=== PATIENT | male | born 1980 | race Caucasian/White ===

== ENCOUNTER 2019-10-21 00:07 | Inpatient (IN) | payer OTHER, SELFPAY ==
[2019-10-21] VITALS (7 sets, daily range): BP systolic 127–182; BP diastolic 85–120; PULSE 78–113; RESP 16–20; TEMP 36.5–37.7; O2SAT 95–97; BMI 23.6
--- NOTE | 2019-10-21 00:46 | W.ED.PSYCH ---
HPI - Psych General: Chief Complaint: Psychiatric Symptoms Stated Complaint: alcohol Time Seen by Provider: 10/21/19 00:38 Source: patient Mode of arrival: ambulatory Limitations: no limitations History of Present Illness: HPI Narrative: 39-year-old male who is here with his cousin. Patient states he has been having increasing depression and thoughts of killing himself including shoot himself with a gun. Patient states he is also been drinking heavily. He denies any previous attempts. Denies any worsening or improving factors. Associated symptoms: Reports depression and suicidal ideation Review of Systems Const: Denies: fever(s), chills, body aches or change in appetite Eyes: Denies: blurry vision or eye discomfort ENMT: Denies: throat pain or dental pain Card: Denies: chest pain Resp: Denies: dyspnea GI: Denies: abdominal pain, nausea, vomiting or diarrhea : Denies: dysuria Musc: Denies: neck pain or back pain Skin/Breast: Denies: rash Neuro: Denies: headache(s) Psych: Reports: depression and suicidal ideation Fred/Lymph: Denies: easy bruising All/Imm: Denies: urticaria PFSH ED PFSH: Social History (Updated 06/17/19 @ 11:58 by Marielena Barragan LPN) Smoking and tobacco status: current every day smoker Physical Exam Const: COMMON NORMALS: no acute distress, patient oriented x3 and healthy appearing HENMT: COMMON NORMALS: normocephalic and atraumatic HEAD & SCALP: normocephalic and atraumatic Eye: COMMON NORMALS: Equal, round and reactive pupils present and EOMs intact bilaterally PUPIL: Yes Equal, round and reactive pupils present Neck/C-Spine: COMMON NORMALS: full ROM and supple Chest: COMMONS NORMALS: normal inspection of the chest and normal palpation of entire chest wall Resp: COMMON NORMALS: normal respiratory effort, No retractions, No use of accessory muscles and clear to auscultation bilaterally AUSCULTATION: clear to auscultation bilaterally Cardio: COMMON NORMALS: regular rate, regular rhythm and No murmurs present (Cardio) RATE: regular rate RHYTHM: regular rhythm GI: COMMON NORMALS: Normal to inspection, nondistended, normoactive bowel sounds present, Soft to palpation, non-tender and no masses PALPATION: Yes Soft to palpation Extremity: COMMON NORMALS: normal to inspection and full ROM Neuro: COMMON NORMALS: patient oriented x3, moves all extremities and no focal motor deficits Psych: COMMON NORMALS: mental status grossly normal and cooperative MOOD & AFFECT: Yes anxious THOUGHT CONTENT: Yes Suicidality present Skin: COMMON NORMALS: no rashes or lesions noted and no wounds GENERAL SKIN EXAM: no rashes or lesions noted MDM - Psych MDM Narrative: Medical decision making narrative: Chay presents here with suicidal ideation with a plan to kill himself. Patient is also intoxicated as well. I spoke to Dr. Sexton and patient is stable in the ER and will admit to the psychiatric unit. Lab Data: Labs: Lab Results 10/21/19 10/21/19 10/21/19 Range/Units 00:53 00:53 01:03 WBC 11.0 H (4.0-10.0) 10^3/ uL RBC 4.52 (4.1-5.3) 10^6/u L Hgb 15.5 (11.7-16.6) g/dL Hct 44.0 (42.0-52.0) % MCV 97.3 H (80-94) fL MCH 34.3 H (28.0-34.0) pg MCHC 35.2 (30.0-36.0) g/dL RDW 11.2 L (12.1-15.1) % Plt Count 289 (130-400) 10^3/c mm MPV 9.4 (7.4-10.4) fL Neut % (Auto) 54.8 % Lymph % (Auto) 32.5 % [place] % (Auto) 6.9 % Eos % (Auto) 4.4 % Baso % (Auto) 0.9 % Neut # (Auto) 6.00 (1.8-7.7) 10^3/u L Lymph # (Auto) 3.6 (0.8-4.8) 10^3/u L [place] # (Auto) 0.8 (0.2-0.9) 10^3/u L Eos # (Auto) 0.5 (0.0-0.8) 10^3/u L Baso # (Auto) 0.1 (0.0-0.1) 10^3/u L Nucleated RBC % (a uto) 0 % Nucleated RBCs # 0.0 /100WBC Sodium 133 L (136-145) mmol/L Potassium 3.8 (3.5-5.1) mmol/L Chloride 94 L (98-107) mmol/L Carbon Dioxide 25 (22-29) mmol/L Anion Gap 17.8 (5-19) BUN 7 (6-20) mg/dL Creatinine 0.6 L (0.7-1.2) mg/dL GFR Calculation 151.6 H (90-130) mL/min Glucose 109 (65-115) mg/dL Calculated Osmolal ity 272 L (285-295) mOsm/k g Calcium 8.6 (8.5-10.5) mg/dL Total Bilirubin 0.7 (0.15-1.2) mg/dL AST 29 (0-40) U/L ALT 27 (0-41) U/L Alkaline Phosphata se 84 (40-130) IU/L Total Protein 7.8 (6.6-8.7) g/dL Albumin 5.0 (3.5-5.2) g/dL Globulin 2.8 (1.3-4.6) g/dL Salicylates < 0.3 L (3-10) mg/dL Urine Opiates Scre en Negative (Negative) ng/mL Acetaminophen < 5.0 L (10-30) ug/mL Ur Barbiturates Sc reen Negative (Negative) ng/mL Ur Phencyclidine S crn Negative (Negative) ng/mL Ur Amphetamines Sc reen Negative (Negative) ng/mL U Benzodiazepines Scrn Negative (Negative) ng/mL Urine Cocaine Scre en Negative (Negative) ng/mL U Marijuana (THC) Screen Negative (Negative) ng/mL Ethyl Alcohol 326 H* (0-10) mg/dL Discharge Plan Discharge Patient Disposition: Admitted As Inpatient Clinical Impression: Suicidal ideation Alcohol intoxication Qualifiers: Complication of substance-induced condition: uncomplicated Qualified Code(s): F10.920 - Alcohol use, unspecified with intoxication, uncomplicated Condition: Stable Coding Level of Care Code ED Train Master for Brannon Fwd Exam Comprehensive
--- NOTE | 2019-10-21 00:49 | PC.NURSE ---
PT'S COUSIN WAS WITH PT AND PT WAS CALM AND COOPERATIVE LONG HIS COUSIN WAS WITH HIM. PT WAS CHECKED ON FREQUENTLY
[2019-10-21 01:03] LABS: Basophils # 0.1 10^3/uL (0.0-0.1); Basophils % 0.9 %; Eosinophils # 0.5 10^3/uL (0.0-0.8); Eosinophils % 4.4 %; Hemoglobin 15.5 g/dL (11.7-16.6); Lymphocytes # 3.6 10^3/uL (0.8-4.8); Lymphocytes % 32.5 %; Mean Corpuscular HGB Conc 35.2 g/dL (30.0-36.0); Mean Corpuscular Hemoglobin 34.3 pg (28.0-34.0); Mean Corpuscular Volume 97.3 fL (80-94); Mean Platelet Volume 9.4 fL (7.4-10.4); Monocytes # 0.8 10^3/uL (0.2-0.9); Monocytes % 6.9 %; Neutrophils % 54.8 %; Nucleated Red Blood Cells % 0 %; Platelet Count 289 10^3/cmm (130-400); Red Blood Count 4.52 10^6/uL (4.1-5.3); Red Cell Distribution Width 11.2 % (12.1-15.1)
[2019-10-21] MEDS: LORazepam 2 mg Tablet PO ×2 (01:07→03:22)
[2019-10-21 01:22] LABS: Alanine Aminotransferase 27 U/L (0-41); Alkaline Phosphatase 84 IU/L (40-130); Anion Gap 17.8 (5-19); Aspartate Amino Transferase 29 U/L (0-40); Blood Urea Nitrogen 7 mg/dL (6-20); Calcium 8.6 mg/dL (8.5-10.5); Carbon Dioxide 25 mmol/L (22-29); Chloride 94 mmol/L (98-107); Globulin 2.8 g/dL (1.3-4.6); Glomerular Filtration Rate 151.6 mL/min (90-130); Glucose 109 mg/dL (65-115); Osmolality Calculated 272 mOsm/kg (285-295); Potassium 3.8 mmol/L (3.5-5.1); Sodium 133 mmol/L (136-145); Total Bilirubin 0.7 mg/dL (0.15-1.2); Total Protein 7.8 g/dL (6.6-8.7)
[2019-10-21 01:43] LABS: Amphetamines Screen Urine Negative (Negative); Barbiturates Screen Urine Negative (Negative); Benzodiazepines Screen Urine Negative (Negative); Cocaine Screen Urine Negative (Negative); Opiate Screen Urine Negative (Negative); PCP Screen Urine Negative (Negative); THC Screen Urine Negative (Negative)
[2019-10-21 01:43] LABS: Acetaminophen < 5.0 ug/mL (10-30); Alcohol Level 326 mg/dL (0-10); Salicylate < 0.3 mg/dL (3-10)
[2019-10-21] MEDS: nicotine 21 mg Patch 1 PATCH TRANSDERMA (03:35)
--- NOTE | 2019-10-21 05:15 | PC.NURSE ---
IM THIAMINE NOT GIVEN DR CHANGED TO PO ROUTE
[2019-10-21] MEDS: folic acid 1 mg Tablet PO (09:14)
[2019-10-21] MEDS: multivitamin therapeutic Tablet 1 TAB PO (09:14)
[2019-10-21] MEDS: thiamine 100 mg Tablet PO (09:14)
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
[2019-10-21] MEDS: ARIPiprazole 10 mg Tablet PO (16:46)
[2019-10-22 06:00] VITALS: BP 146/98; PULSE 78; RESP 18; TEMP 36.4; O2SAT 94
[2019-10-22] MEDS: multivitamin therapeutic Tablet 1 TAB PO (09:19)
[2019-10-22] MEDS: ARIPiprazole 10 mg Tablet PO (09:19)
[2019-10-22] MEDS: thiamine 100 mg Tablet PO (09:20)
[2019-10-22] MEDS: folic acid 1 mg Tablet PO (09:20)
[2019-10-22 13:39] VITALS: BP 133/88; PULSE 91; RESP 20; TEMP 36.2; O2SAT 96
--- NOTE | 2019-10-22 14:24 | PM.NPN ---
Subjective NPU Subjective: Interval history: Sol presented today reporting that he feels better with the Abilify. He still having some paranoia but he is definitely noticing that is improved. He was able to share that a significant part of his challenges right now in addition to voices is paranoia when he is in group settings especially. That makes it really hard with work. He reports he knows he has coworkers that take benzodiazepines but then that creates some issues with getting cleared for jobs. He is hopeful that we might have something that would do the trick with his anxiety but not need to be controlled. We discussed the risks benefits and alternatives of BuSpar as a standing medication and possibly propranolol as a when necessary medication and he understood and agreed to proceed as documented in his note. Mental Status Exam MSE Comments: This is a well-nourished well developed, white male, with limited dress, grooming, and eye contact. No abnormal movements, except for psychomotor retardation. Cooperative with exam in less distress. Speech was decreased rate and volume. Mood described as anxious; affect guarded. Thought process, organized. Thought content: patient denied any suicidal or homicidal ideation, there was paranoia reported and he appeared guarded, patient endorsed some auditory or visual hallucinations. Attention, concentration, and memory appear intact but none were formally tested. He is alert and oriented times three. Insight and judgment appear fair. Vitals/I&O/Wt Last Vital Signs Temp 97.2 F L 10/22/19 13:39 Pulse 91 10/22/19 13:39 Resp 20 H 10/22/19 13:39 BP 133/88 10/22/19 13:39 Pulse Ox 96 10/22/19 13:39 Weight last 48 hrs Weight 68.492 kg Data NPU : 10/21/19 00:53 10/21/19 00:53 A&P Additional A&P Information (1) Alcohol intoxication: (2) Suicidal ideation: (3) Psychosis: Additional A&P Information This is a 39 year old, white male, with a long history of alcohol use, depression, suicidal thoughts and psychosis, who presents in withdrawal open to evaluation and treatment. Continue current medication except: start BuSpar 15 mg by mouth twice a day Encourage individual, group, and milieu therapy. Continue q-15 minute checks for safety. Encourage sober living treatment after discharge that the highest level of care to which he is willing to commit. Involuntary Hold Information 96 Hour Hold: 96 Hour Involuntary Admission: Yes 96 Hour Hold Ending Date: 11/23/19 96 Hour Hold Ending Time: 00:54 Attestations NPU Medical Necessity Statement*: Inpatient hospitalization is medically necessary and the clinically appropriate intervention, at this time. We will monitor medications and make changes as indicated. Likely length of stay is 3-5 days. Coding Level of Care Code Acute Complaints Coordinator for Brannon Avila
[2019-10-22 21:37] VITALS: BP 136/103; PULSE 88; RESP 17; TEMP 35.9; O2SAT 96
[2019-10-22] MEDS: trazodone 50 mg Tablet PO (22:07)
--- NOTE | 2019-10-22 22:14 | PC.NURSE ---
PRN TRAZODONE PT REQUESTING SLEEP AID. ADMINISTERED TRAZODONE 50MG PO. WILL MONITOR FOR MEDICATION EFFECTIVENESS.
[2019-10-23 06:00] VITALS: BP 126/84; PULSE 66; RESP 15; TEMP 36.3; O2SAT 96
[2019-10-23] MEDS: thiamine 100 mg Tablet PO (08:14)
[2019-10-23] MEDS: multivitamin therapeutic Tablet 1 TAB PO (08:14)
[2019-10-23] MEDS: ARIPiprazole 10 mg Tablet PO (08:14)
[2019-10-23] MEDS: folic acid 1 mg Tablet PO (08:14)
[2019-10-23 14:00] VITALS: BP 136/85; PULSE 89; RESP 16; TEMP 37; O2SAT 97
--- NOTE | 2019-10-23 15:12 | PM.NPN ---
Subjective NPU Subjective: Interval history: Cahy presents today reporting that things are going okay. He had an opportunity to speak with his , and he is feeling that she feels better about what is going on. He discussed an openness to possibly consider some kind of rehab or treatment. We discussed the fact that the treatment team would be in in the morning to be able to work with him on the options that exist. He reports that the BuSpar that was started is doing well, and he is feeling less psychosis on the Abilify. He reports that he is eating and sleeping better and is willing to continue to work with the team on a plan that will prevent this from happening again. Mental Status Exam MSE Comments: This is a well-nourished well developed, white male, with limited dress, grooming, and eye contact. No abnormal movements, except for psychomotor retardation. Cooperative with exam in less distress. Speech was decreased rate and volume. Mood described as a little better; affect less guarded. Thought process, organized. Thought content: patient denied any suicidal or homicidal ideation, there was paranoia reported and he appeared guarded, patient endorsed some auditory or visual hallucinations that are improving. Attention, concentration, and memory appear intact but none were formally tested. He is alert and oriented times three. Insight and judgment appear fair. Vitals/I&O/Wt Last Vital Signs Temp 98.6 F 10/23/19 21:29 Pulse 73 10/23/19 21:29 Resp 20 H 10/23/19 21:29 BP 164/100 10/23/19 21:29 Pulse Ox 99 10/23/19 21:29 Weight last 48 hrs Weight 66.735 kg Data NPU : 10/21/19 00:53 10/21/19 00:53 A&P Additional A&P Information (1) Alcohol intoxication: (2) Suicidal ideation: (3) Psychosis: Additional A&P Information This is a 39 year old, white male, with a long history of alcohol use, depression, suicidal thoughts and psychosis, who presents in withdrawal open to evaluation and treatment. Continue current medication. Encourage individual, group, and milieu therapy. Continue q-15 minute checks for safety. Encourage sober living treatment after discharge that the highest level of care to which he is willing to commit. Involuntary Hold Information 96 Hour Hold: 96 Hour Involuntary Admission: Yes 96 Hour Hold Ending Date: 11/23/19 96 Hour Hold Ending Time: 00:54 Attestations NPU Medical Necessity Statement*: Inpatient hospitalization is medically necessary and the clinically appropriate intervention, at this time. We will monitor medications and make changes as indicated. Likely length of stay is 2-4 days. Coding Level of Care Code Acute Traveling Accountant for Brannon Avila
[2019-10-23] MEDS: hyDROXYzine 25 mg Capsule 50 MG PO (21:17)
[2019-10-23] MEDS: trazodone 50 mg Tablet PO (21:17)
[2019-10-23 21:29] VITALS: BP 164/100; PULSE 73; RESP 20; TEMP 37; O2SAT 99
--- NOTE | 2019-10-23 22:25 | PC.NURSE ---
pt given prn trazodone and vistaril per request.
[2019-10-24 06:00] VITALS: BP 133/93; PULSE 86; RESP 20; TEMP 36.8; O2SAT 96
[2019-10-24] MEDS: thiamine 100 mg Tablet PO (09:20)
[2019-10-24] MEDS: folic acid 1 mg Tablet PO (09:20)
[2019-10-24] MEDS: ARIPiprazole 10 mg Tablet PO (09:20)
[2019-10-24] MEDS: multivitamin therapeutic Tablet 1 TAB PO (09:20)
--- NOTE | 2019-10-24 12:44 | PM.NPN ---
Subjective NPU Subjective: Interval history: Patient reports himself doing well today. He denies any signs or symptoms of alcohol withdrawal. He is optimistic about returning home. 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 He does not feel that going to a rehab program is necessary. He reports that he is tolerating current medications well. Mental Status Exam MSE Comments: This is a well-nourished well developed, white male, with limited dress, grooming, and eye contact. No abnormal movements, except for psychomotor retardation. Cooperative with exam in less distress. Speech was decreased rate and volume. Mood described as a little better; affect less guarded. Thought process, organized. Thought content: patient denied any suicidal or homicidal ideation, there was paranoia reported and he appeared guarded, patient endorsed some auditory or visual hallucinations that are improving. Attention, concentration, and memory appear intact but none were formally tested. He is alert and oriented times three. Insight and judgment appear fair. Cognition: Patient Appearance: Appropriate Level of Consciousness: Awake, Alert and Follows Commands Patient Cognition Impaired: No Ability to Follow Directions: Fair Patient Orientation (long list): Person, Place, Time and Name Comprehension Ability: Moderate Impairment Hallucination Type: None Delusion Description: Not Present Thought Process: Appropriate Affect: Affect Description: Calm Depressive Symptoms: Back Pain and Increased Anxiety Behavior: Patient Behavior: Cooperative Speech Pattern: Clear Vitals/I&O/Wt Last Vital Signs Temp 98.3 F 10/24/19 06:00 Pulse 86 10/24/19 06:00 Resp 20 H 10/24/19 06:00 BP 133/93 10/24/19 06:00 Pulse Ox 96 10/24/19 06:00 Weight last 48 hrs Weight 66.735 kg Data NPU : 10/21/19 00:53 10/21/19 00:53 A&P Assessment and plan (1) Alcohol intoxication: Status: Acute Qualifiers: Complication of substance-induced condition: uncomplicated Qualified Code(s): F10.920 - Alcohol use, unspecified with intoxication, uncomplicated (2) Suicidal ideation: Status: Acute (3) Psychosis: Status: Acute Additional A&P Information (1) Alcohol intoxication: (2) Suicidal ideation: (3) Psychosis: Additional A&P Information This is a 39 year old, white male, with a long history of alcohol use, depression, suicidal thoughts and psychosis, who presents in withdrawal open to evaluation and treatment. Hospital day #5: Continue Abilify 10 mg at bedtime and buspirone 5 mg twice daily. If patient remains free of imminent risk to self or others, we will consider discharge early. Encourage individual, group, and milieu therapy. Continue q-15 minute checks for safety. Encourage sober living treatment after discharge that the highest level of care to which he is willing to commit. Involuntary Hold Information 96 Hour Hold: 96 Hour Involuntary Admission: Yes 96 Hour Hold Ending Date: 11/23/19 96 Hour Hold Ending Time: 00:54 Attestations NPU Medical Necessity Statement*: Patient will remain in the hospital another 2-4 nights for assessment of medication efficacy and tolerability. Coding Level of Care Code Acute Manager Icu for Brannon Avila Diagnoses Alcohol intoxication F10.920 Complication of substance-induced condition: uncomplicated Suicidal ideation R45.851 Psychosis F29
[2019-10-24 14:00] VITALS: BP 146/98; PULSE 83; RESP 20; TEMP 36.4; O2SAT 98
[2019-10-24] MEDS: nicotine 2 mg Gum BUCCAL (18:53)
[2019-10-24] MEDS: hyDROXYzine 25 mg Capsule 50 MG PO (21:02)
[2019-10-24] MEDS: trazodone 50 mg Tablet PO (21:03)
[2019-10-24 22:00] VITALS: BP 148/99; PULSE 95; RESP 17; TEMP 36.8; O2SAT 98
[2019-10-25 06:00] VITALS: BP 138/89; PULSE 70; RESP 18; TEMP 36.8; O2SAT 100
[2019-10-25] MEDS: multivitamin therapeutic Tablet 1 TAB PO (08:30)
[2019-10-25] MEDS: ARIPiprazole 10 mg Tablet PO (08:30)
[2019-10-25] MEDS: thiamine 100 mg Tablet PO (08:30)
[2019-10-25] MEDS: folic acid 1 mg Tablet PO (08:30)
[2019-10-25 10:10] VITALS: BP 138/89; PULSE 70; RESP 18; TEMP 36.8; O2SAT 100
--- NOTE | 2019-10-25 12:50 | P.DS_ITS ---
Diagnoses at Discharge Discharge Diagnosis (1) Alcohol intoxication: Status: Acute Qualifiers: Complication of substance-induced condition: uncomplicated Qualified Code(s): F10.920 - Alcohol use, unspecified with intoxication, uncomplicated (2) Suicidal ideation: Status: Acute (3) Psychosis: Status: Acute Reason for Visit Reason for Visit: alcohol Brief History: HPI Narrative: 39-year-old male katiuska pelaez is here with his cousin. Patient states he has been having increasing depression and thoughts of killing himself including shoot himself with a gun. Patient states he is also been drinking heavily. He denies any previous attempts. Denies any worsening or improving factors. Chay Craft is a 39 year old male who presented to the emergency department endorsing depression and suicidal ideation. He was intoxicated and unable to contract for safety. He was admitted to the neuropsychiatric unit for definitive treatment of those issues. He presented this morning reporting that he is also struggling with hearing voices. Reports of those voices say a lot of negative things and began about 4 years ago after the of a close family member. He denies any history of psychosis prior to that. He denies any history of mental health treatment or hospitalization. He endorses that he does E cigarettes and that he has gone away from regular cigarettes. He reports that he drinks 12-14 drinks a day all. He denies marijuana, cocaine and methamphetamine and opiates. He endorses some issues in the past possibly with drugs. He had one rehabilitation in [facility] last for maybe when he was 24 years old. He endorses struggling with paranoia, hearing voices of psychosis, anxiety especially around people. He reports some depression but mostly is related to the overwhelming nature of dealing with the psychosis. We discussed the risks benefits and alternatives of him starting an antipsychotic, specifically Abilify and he understood and agreed to proceed as is documented in his note. Hospital Course Hospital Course Assessment and plan (1) Alcohol intoxication: Status: Acute Qualifiers: Complication of substance-induced condition: uncomplicated Qualified Code(s): F10.920 - Alcohol use, unspecified with intoxication, uncomplicated (2) Suicidal ideation: Status: Acute (3) Psychosis: Status: Acute The patient was admitted to the adult psychiatric unit and entered into the form of individual and group therapies as part of the unit protocol. They were provided 24-hour access to medication supervision and therapeutic activities by trained psychiatric nursing. The patient was educated with regard to potential benefits and side effects of new medications. We agreed to a contingency plan of discontinuation of medication in the event of intolerable side effects. This is a 39 year old, white male, with a long history of alcohol use, depression, suicidal thoughts and psychosis, who presents in withdrawal open to evaluation and treatment. start Abilify 10 mg po qam. Encourage individual, group, and milieu therapy. Continue q-15 minute checks for safety. Encourage sober living treatment after discharge that the highest level of care to which he is willing to commit. Hospital Day #2: Interval history: Sol presented today reporting that he feels better with the Abilify. He still having some paranoia but he is definitely noticing that is improved. He was able to share that a significant part of his challenges right now in addition to voices is paranoia when he is in group settings especially. That makes it really hard with work. He reports he knows he has coworkers that take benzodiazepines but then that creates some issues with getting cleared for jobs. He is hopeful that we might have something that would do the trick with his anxiety but not need to be controlled. We discussed the risks benefits and alternatives of BuSpar as a standing medication and possibly propranolol as a when necessary medication and he understood and agreed to proceed as documented in his note. Plan: Continue current medication except: start BuSpar 15 mg by mouth twice a day Hospital Day #4: nterval history: Chay presents today reporting that things are going okay. He had an opportunity to speak with his , and he is feeling that she feels better about what is going on. He discussed an openness to possibly consider some kind of rehab or treatment. We discussed the fact that the treatment team would be in in the morning to be able to work with him on the options that exist. He reports that the BuSpar that was started is doing well, and he is feeling less psychosis on the Abilify. He reports that he is eating and sleeping better and is willing to continue to work with the team on a plan that will prevent this from happening again. Hospital Day #5 nterval history: Patient reports himself doing well today. He denies any signs or symptoms of alcohol withdrawal. He is optimistic about returning home. 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 He does not feel that going to a rehab program is necessary. He reports that he is tolerating current medications well. Involuntary Hold Information 96 Hour Hold: 96 Hour Involuntary Admission: Yes 96 Hour Hold Ending Date: 11/23/19 96 Hour Hold Ending Time: 00:54 Mental Status Exam MSE Comments: Discharge Mental Status Exam: Appearance: hygiene is good; no gross neurological deficits., gait is unremarkable; AIMS=0 Speech: Speech is of normal rate and rhythm and easily understood. Thought processes: Thought processes are abstract. Judgment is adequate for safety. Associations: intact Psychotic processes: There is no indication of guarding or paranoia. There is no attention to the internal stimuli. Auditory and visual hallucinations are denied. Judgment: Insight is fair. Problem solving skills are adequate for safety. Orientation: The patient is oriented to person, place time and situation. Memory: no deficits noted in immediate, intermediate, or remote spheres. Attention: The patient is alert and interpersonally engaged. Language: Verbalizations are coherent. Fund of knowledge: Fund of knowledge is adequate. Affect/Mood: Affect is consistent with a euthymic mood. denied suicidal ideation Affective range is appropriate. Psychosis: perception unimpaired except through cognitive distortion; reality testing intact. Discharge Data Vitals: Last Vital Signs Temp 98.2 F 10/25/19 10:10 Pulse 70 10/25/19 10:10 Resp 18 10/25/19 10:10 BP 138/89 10/25/19 10:10 Pulse Ox 100 10/25/19 10:10 Discharge Plan Discharge Patient Disposition: Home Condition: Stable Prescriptions: New buspirone 15 mg Tablet 15 mg PO BID Qty: 60 RF: 5 aripiprazole 10 mg Tablet 10 mg PO DAILY Qty: 30 RF: 5 trazodone 50 mg Tablet 50 mg PO BEDTIME PRN (Reason: Sleep) Qty: 15 RF: 5 folic acid 1 mg Tablet 1 mg PO DAILY Qty: 30 RF: 0 Vitamin B-1 (mononitrate) 100 mg Tablet 100 mg PO DAILY Qty: 30 RF: 0 Thera 400 mcg Tablet 1 tab PO DAILY Qty: 30 RF: 0 Discontinued amoxicillin-pot clavulanate [Augmentin] 500-125 mg tablet 1 tab PO BID Qty: 14 RF: 0 Discharge Orders: Discharge Order (Routine); Ordered 10/25/19 Ordered By: Kenji Pedraza Referrals: [facility] [Other] - 4-7 days [facility] [Outside] (Fill out the paperwork for [facility] Patient Instructions: Alcohol Abuse, Buspirone (By mouth), Trazodone (By mout h), Folic Acid (By mouth), Aripiprazole (By mouth) Discharge Date/Time: 10/25/19 10:40 Discharge Attestations NPU Time Spent in Discharge Care*: greater than 30 min Coding Level of Care Code Acute Creative Writing Teacher for Chg Fwd Diagnoses Alcohol intoxication F10.920 Complication of substance-induced condition: uncomplicated Suicidal ideation R45.851 Psychosis F29
== END 2019-10-25 10:40 | disposition home or self-care (01) | DRG 897 ==
LOC: ER 00:53 → NP 03:35
PROVIDERS: Emergency Medicine; Admitting Provider Psychiatry & Neurology Psychiatry; Visit Provider Psychiatry & Neurology Psychiatry
DX: F10.920 Alcohol use, unspecified with intoxication, uncomplicated (principal); R45.851 Suicidal ideations; F23 Brief psychotic disorder; F17.210 Nicotine dependence, cigarettes, uncomplicated; Y90.9 Presence of alcohol in blood, level not specified
CPT/HCPCS: 12345; 80053; 80306; 80307; 85025; 99284

== ENCOUNTER → 2022-04-01 14:24 | Outpatient (BNVA) | payer OTHER, SELFPAY | PROVIDERS: Visit Provider Family Medicine | DX: F10.10 Alcohol abuse, uncomplicated (principal); F41.9 Anxiety disorder, unspecified; R53.83 Other fatigue | CPT/HCPCS: 80053; 80061; 81000; 82306; 82607; 82746; 83735; 84443; 85025 ==

== ENCOUNTER → 2022-07-03 10:50 | Outpatient (BNVA) | payer OTHER, SELFPAY | PROVIDERS: PCP Family Medicine; Visit Provider Family Medicine | DX: I10 Essential (primary) hypertension (principal); F10.10 Alcohol abuse, uncomplicated; F41.9 Anxiety disorder, unspecified; F17.200 Nicotine dependence, unspecified, uncomplicated; R53.83 Other fatigue | CPT/HCPCS: 80053; 84425 ==